=== PATIENT | female | born 1970 | race African-American/Black ===

== ENCOUNTER 2022-01-08 23:29 | Emergency (ER) | payer OTHER ==
[~2022-01-08] VITALS: Ht 165.1 cm; Wt 105.0 kg
[~2022-01-08 23:29] MED LIST: UNKNOWN MEDS
[2022-01-08 23:38] VITALS: BP 114/83
[2022-01-09] MEDS ORDERED: LIDOCAINE 5% PATCH TOP SCH (06:00)
[2022-01-09] MEDS ORDERED: ACETAMINOPHEN 325MG TABLET PO ONE (06:00)
[2022-01-09] MEDS ORDERED: MED4 MT (07:44)
[2022-01-09] MEDS ORDERED: ACET-2708 MT (07:44)
[2022-01-09] MEDS ORDERED: LIDO700A15 TP (07:44)
[2022-01-09] MEDS ORDERED: BACL-141 MT (07:44)
== END 2022-01-09 08:07 | disposition home or self-care (01) ==
LOC: ER 23:29
DX: S13.4XXA Sprain of ligaments of cervical spine, initial encounter (principal); M54.50 Low back pain, unspecified; M47.892 Other spondylosis, cervical region; F12.10 Cannabis abuse, uncomplicated; V43.62XA Car passenger injured in collision with other type car in traffic accident, initial encounter; Y93.89 Activity, other specified; Y92.488 Other paved roadways as the place of occurrence of the external cause
CPT/HCPCS: 72100; 99284